=== PATIENT | female | born 1970 | race Two or more races ===

== ENCOUNTER 2022-05-02 05:40 | Day surgery (SDC) | payer OTHER ==
[~2022-05-02] VITALS: Ht 152.4 cm; Wt 68.0 kg
[2022-05-02] MEDS ORDERED: IBU600 MG PO (08:46)
[2022-05-02] MEDS ORDERED: MORGIDOX100 MG PO (08:46)
== END 2022-05-02 13:10 | disposition home or self-care (01) ==
LOC: CIR.AMB 05:40
PROVIDERS: ATTEND Obstetrics & Gynecology
DX: N92.1 Excessive and frequent menstruation with irregular cycle (principal); N84.0 Polyp of corpus uteri; D25.0 Submucous leiomyoma of uterus; E11.9 Type 2 diabetes mellitus without complications